=== PATIENT | male | born 1975 | race Caucasian/White ===

== ENCOUNTER → 2024-01-07 | Outpatient (CLI) | payer SELFPAY ==
--- NOTE | 2024-01-07 08:53 | RAD_ITS ---
STUDY: X-RAY - CERVICAL SPINE REASON FOR EXAM: Male, 48 years old. Headache and neck pain TECHNIQUE: 5 view(s) of the cervical spine were obtained. COMPARISON: None FINDINGS: Normal anterior atlantoaxial articulation. Normal odontoid process. Normal cervical lordosis. Normal vertebral bodies and endplates. Normal disc space heights. Normal visualized intervertebral neuroforamina. The soft tissue structures are unremarkable. RAD/Cerv Spine 4 or 5 Views IMPRESSION: Normal x-ray examination of the visualized cervical spine. Electronically Signed: Alcides Camarena MD at 9:28 EDT ,
== END | disposition home or self-care (01) ==
PROVIDERS: Referring Provider Chiropractor Orthopedic; Visit Provider Chiropractor Orthopedic
DX: M99.01 Segmental and somatic dysfunction of cervical region (principal)
CPT/HCPCS: 72050

== ENCOUNTER → 2024-03-01 | Outpatient (CLI) | payer SELFPAY ==
--- NOTE | 2024-03-01 09:15 | RAD_ITS ---
STUDY: X-RAY - THORACIC SPINE REASON FOR EXAM: Male, 48 years old. Thoracic pain. TECHNIQUE: 2 view(s) of the thoracic spine were obtained. COMPARISON: None. FINDINGS: Normal kyphosis of the thoracic spine. There is no substantial scoliosis. Normal thoracic vertebrae and endplates. There is mild degree of disc space narrowing of the thoracic spine. The soft tissue structures are unremarkable. RAD/Thoracic Spine 3 Views IMPRESSION: Mild degree of disc space narrowing. Electronically Signed: Cesar Bae MD at 15:38 EDT ,
== END | disposition home or self-care (01) ==
LOC: RAD 09:05
PROVIDERS: Referring Provider Chiropractor Orthopedic; Visit Provider Chiropractor Orthopedic
DX: M99.02 Segmental and somatic dysfunction of thoracic region (principal); M54.6 Pain in thoracic spine
CPT/HCPCS: 72072